=== PATIENT | male | born 1975 | race Caucasian/White ===

== ENCOUNTER 2016-10-10 13:58 | Emergency (ER) | payer BC ==
[~2016-10-10] VITALS: Ht 175.3 cm; Wt 88.7 kg
[2016-10-10] MEDS ORDERED: LORTAB 5-325 M1 EACH PO (16:46)
[2016-10-10] MEDS ORDERED: KEFLEX500 MG PO (16:46)
[2016-10-10] MEDS ORDERED: NAPROSYN500 MG PO (16:46)
[2016-10-10 17:02] VITALS: BP 159/86
== END 2016-10-10 17:03 | disposition home or self-care (01) ==
LOC: EME 13:58
PROC: 0HQFXZZ Repair Right Hand Skin, External Approach (ICD-10-PCS; principal; 2016-10-10)
DX: S62.630B Displaced fracture of distal phalanx of right index finger, initial encounter for open fracture (principal); W31.2XXA Contact with powered woodworking and forming machines, initial encounter; Y93.89 Activity, other specified; Y99.0 Civilian activity done for income or pay; Y92.009 Unspecified place in unspecified non-institutional (private) residence as the place of occurrence of the external cause
CPT/HCPCS: 73140; 99281; 99284; S0020